=== PATIENT | female | born 1995 | race American Indian/Alaskan Native ===

== ENCOUNTER 2020-10-24 14:01 | Emergency (ER) | payer OTHER ==
--- NOTE | 2020-10-24 14:46 | XRay Report ---
XR foot 3+V RT INDICATION / CLINICAL INFORMATION: right foot sprain. COMPARISON: None available. FINDINGS: BONES/JOINT(S): No acute fracture or subluxation. No significant degenerative changes. SOFT TISSUES: No significant abnormality. ADDITIONAL FINDINGS: None. Signer Name: Rony Mendoza MD Signed: 10/24/2020 2:42 PM Workstation Name: [id number]
[2020-10-24] MEDS ORDERED: IBUPROFEN 600 MG TAB PO ONE (15:56)
--- NOTE | 2020-10-24 16:01 | Emergency Department Report ---
ED Lower Extremity HPI - General Chief Complaint: Extremity Injury, Lower Stated Complaint: RIGHT FOOT SPRAIN Time Seen by Provider: 10/24/20 15:25 Source: patient Mode of arrival: Ambulatory Limitations: No Limitations - History of Present Illness Initial Comments: Patient is a 25-year-old female presents emergency room complaints of a right foot injury that occurred early this morning. She states that she missed a step and accidentally tripped and fell down approximately 4 steps. she states since then she has had right foot pain. She states that she attempted to walk back up the steps but could not secondary to pain. She denies any numbness or weakness. She denies ever injuring this foot in the past. No past medical history. No allergies medications. She is currently on her menstrual cycle. - Related Data Previous Rx's Medication Instructions Recorded Last Taken Type Ibuprofen [Motrin 600 MG tab] 600 mg PO Q8H PRN #20 tablet 10/24/20 Unknown Rx Allergies Allergy/AdvReac Type Severity Reaction Status Date / Time No Known Allergies Allergy Unverified 03/31/20 09:29 ED Review of Systems ROS: Stated complaint: RIGHT FOOT SPRAIN Other details as noted in HPI Comment: All other systems reviewed and negative ED Past Medical Hx - Past Medical History Previous Medical History?: No Hx Hypertension: No Hx Congestive Heart Failure: No Hx Diabetes: No Hx Deep Vein Thrombosis: No Hx Renal Disease: No Hx Sickle Cell Disease: No Hx Seizures: No Hx Asthma: No Hx COPD: No Hx HIV: No - Surgical History Past Surgical History?: No - Social History Smoking Status: Never Smoker - Medications Home Medications: Home Medications Medication Instructions Recorded Confirmed Last Taken Type Ibuprofen [Motrin 600 MG tab] 600 mg PO Q8H PRN #20 tablet 10/24/20 Unknown Rx ED Physical Exam - General Limitations: No Limitations General appearance: alert, in no apparent distress - Head Head exam: Present: atraumatic, normocephalic - Eye Eye exam: Present: normal appearance - ENT ENT exam: Present: mucous membranes moist - Extremities Exam Extremities exam: Present: other (ttp to the right dorsal foot, mild edema, FROM of the RLE with pain upon flexion and rotation of the foot, neurovascularly intact) - Neurological Exam Neurological exam: Present: alert, oriented X3 - Psychiatric Psychiatric exam: Present: normal affect, normal mood - Skin Skin exam: Present: warm, dry, intact ED Course Vital Signs 10/24/20 10/24/20 14:16 16:49 Temperature 99 F 98.4 F Pulse Rate 87 86 Respiratory 20 16 Rate Blood Pressure 132/56 132/87 [Right] O2 Sat by Pulse 99 100 Oximetry ED Lower Extremity MDM - Radiology Data Radiology results: report reviewed Ordering Physician: MIGUEL MILLER MD Date of Service: 10/24/20 Procedure(s): XR foot 3+V RT Accession Number(s): [id number] cc: MIGUEL MILLER MD Fluoro Time In Minutes: XR foot 3+V RT INDICATION / CLINICAL INFORMATION: right foot sprain. COMPARISON: None available. FINDINGS: BONES/JOINT(S): No acute fracture or subluxation. No significant degenerative changes. SOFT TISSUES: No significant abnormality. ADDITIONAL FINDINGS: None. Signer Name: Rony Mendoza MD Signed: 10/24/2020 2:42 PM Workstation Name: [id number] Transcribed By: JENNIFER Dictated By: Rony Mendoza MD Electronically Authenticated By: Rony Mendoza MD Signed Date/Time: 10/24/201441 DD/ 41 TD/TT: - Medical Decision Making Patient is a 25-year-old female presents emergency room complaints of a right foot injury that occurred early this morning. She states that she missed a step and accidentally tripped and fell down approximately 4 steps. she states since then she has had right foot pain. She states that she attempted to walk back up the steps but could not secondary to pain. She denies any numbness or weakness. She denies ever injuring this foot in the past. No past medical history. No allergies medications. She is currently on her menstrual cycle. XR right foot: BONES/JOINT(S): No acute fracture or subluxation. No significant degenerative changes. SOFT TISSUES: No significant abnormality. ADDITIONAL FINDINGS: None. examination likely consistent with foot sprain. pt placed in post op shoe and given crutches. advised pt Please take medication as prescribed. Follow-up with orthopedic doctor. Return to emergency room for any new or worsening symptoms. Critical care attestation.: If time is entered above; I have spent that time in minutes in the direct care of this critically ill patient, excluding procedure time. ED Disposition Clinical Impression: Right foot sprain Qualifiers: Encounter type: initial encounter Qualified Code(s): S93.601A - Unspecified sprain of right foot, initial encounter Disposition: TO HOME OR SELFCARE Is pt being admited?: No Does the pt Need Aspirin: No Condition: Stable Instructions: RICE Therapy for Routine Care of Injuries, [id number], Foot Sprain Additional Instructions: Please take medication as prescribed. Follow-up with orthopedic doctor. Return to emergency room for any new or worsening symptoms. Prescriptions: Ibuprofen [Motrin 600 MG tab] 600 mg PO Q8H PRN #20 tablet PRN Reason: Pain Referrals: [facility] [Provider Group] - 2-3 Days GENA SÁNCHEZ MD [Staff Physician] - 2-3 Days Time of Disposition: 16:00 Print Language: SLOVENIAN
[2020-10-24 16:51] VITALS: BP 132/87
== END 2020-10-24 16:51 | disposition home or self-care (01) ==
LOC: ED 14:01
DX: S93.601A Unspecified sprain of right foot, initial encounter (principal); Z79.1 Long term (current) use of non-steroidal anti-inflammatories (NSAID); W01.0XXA Fall on same level from slipping, tripping and stumbling without subsequent striking against object, initial encounter; Y93.89 Activity, other specified; Y92.89 Other specified places as the place of occurrence of the external cause; Y99.8 Other external cause status
CPT/HCPCS: 99283

== ENCOUNTER 2021-08-05 16:22 | Emergency (ER) | payer OTHER ==
[2021-08-05 17:29] VITALS: BP 72/36
== END 2021-08-05 20:45 | disposition left against medical advice (07) ==
LOC: ED 16:22
DX: R11.10 Vomiting, unspecified (principal); Z53.21 Procedure and treatment not carried out due to patient leaving prior to being seen by health care provider; R51.9 Headache, unspecified